=== PATIENT | male | born 1985 ===

== ENCOUNTER 2018-09-15 05:36 | Emergency (ER) | payer OTHER ==
--- NOTE | 2018-09-15 05:53 | C.PDOC ---
History Of Present Illness 33 year old male presents to the ER with a complaint of lower back pain after lifting a heavy object at work yesterday. Patient states the pain began mild but has progressively gotten severe. He notes the pain worsens with movement and ambulation. Denies weakness, numbness, incontinence, dysuria, or hematuria. Time Seen by Provider: 09/15/18 05:51 Chief Complaint (Nursing): Back Pain History Per: Patient History/Exam Limitations: no limitations Onset/Duration Of Symptoms: Days (Yesterday) Current Symptoms Are (Timing): Still Present Quality Of Discomfort: Unable To Describe Previous Symptoms: None Associated Symptoms: None Exacerbating Factor(s): Movement, Other (Ambulation) Recent travel outside of the [place]: No Past Medical History Reviewed: Historical Data, Nursing Documentation, Vital Signs Vital Signs: Last Vital Signs Temp 97.8 F 09/15/18 05:45 Pulse 82 09/15/18 05:45 Resp 20 09/15/18 05:45 BP 123/69 09/15/18 05:45 Pulse Ox 97 09/15/18 05:45 Family History: States: Unknown Family Hx - Social History Hx Alcohol Use: Yes Hx Substance Use: No - Immunization History Hx Tetanus Toxoid Vaccination: No Hx Influenza Vaccination: No Hx Pneumococcal Vaccination: No Review Of Systems Genitourinary: Negative for: Dysuria, Incontinence, Hematuria Musculoskeletal: Positive for: Back Pain (Lower) Neurological: Negative for: Weakness, Numbness Physical Exam - Physical Exam Appears: Non-toxic Skin: Normal Color, Warm, Dry Head: Atraumatic, Normacephalic Eye(s): bilateral: Normal Inspection Back: No Vertebral Tenderness, Paraspinal Tenderness (Left lumbar), Straight Leg Raising (Positive to left at 45 degrees) Extremity: Normal ROM (x4) Neurological/Psych: Oriented x3, Normal Speech, Normal Motor, Normal Sensation Gait: Steady ED Course And Treatment O2 Sat by Pulse Oximetry: 97 (Room air) Pulse Ox Interpretation: Normal Progress Note: Toradol and valium administered. Patient reports improvement of pain, he is resting comfortably in the ER in no acute distress, able to ambulate with steady gait, vitals are stable, will discharge home with instructions to follow up with PMD. Disposition Counseled Patient/Family Regarding: Diagnosis, Need For Followup, Rx Given - Disposition Disposition: HOME/ ROUTINE Disposition Time: 06:21 Condition: STABLE Additional Instructions: Continue medications as directed Follow up in clinic Return to ER if worse Prescriptions: Cyclobenzaprine [Cyclobenzaprine HCl] 10 mg PO BID #10 tab Naproxen [Naprosyn] 1 tab PO BID PRN #25 tab PRN Reason: Pain Instructions: Lumbar Muscle Strain (DC) Forms: [facility] (Slovenian), Work Excuse - Clinical Impression Clinical Impression: Low back strain - PA / GENETIC TECHNOLOGIST / Resident Statement MD/DO has reviewed & agrees with the documentation as recorded. - Scribe Statement The provider has reviewed the documentation as recorded by the Scribe Price Johnson All medical record entries made by the Robert were at my direction and personally dictated by me. I have reviewed the chart and agree that the record accurately reflects my personal performance of the history, physical exam, medical decision making, and the department course for this patient. I have also personally directed, reviewed, and agree with the discharge instructions and disposition.
[2018-09-15 06:21] VITALS: RESP 20
[2018-09-15 07:10] VITALS: BP 127/69; PULSE 78; TEMP 98.3; O2SAT 98
== END 2018-09-15 07:06 | disposition home or self-care (01) ==
LOC: C.ER 05:36
DX: S39.012A Strain of muscle, fascia and tendon of lower back, initial encounter (principal); X50.0XXA Overexertion from strenuous movement or load, initial encounter; Y92.89 Other specified places as the place of occurrence of the external cause; Y99.0 Civilian activity done for income or pay
CPT/HCPCS: 96372; 99283; J1885